=== PATIENT | female | born 1960 | race Caucasian/White ===

== ENCOUNTER → 2016-06-10 17:00 | Outpatient (CLI) | payer OTHER ==
[2012-11-16 20:04] VITALS: BMI 56.8
[~2016-06-10 17:00] MED LIST: ALEVE220 MG PO; CELEXA20 MG PO; GLUCOPHAGE500 MG PO; K-DUR20 MEQ PO; LASIX20 MG PO; MOTRIN600 MG PO; NORCO 5/325 TAB1 TA1 PO; ROBAXIN500 MG PO; ULTRAM50 MG PO; VITAMIN D250000 UNIT PO
== END | disposition home or self-care (01) ==
LOC: D.MAMMO 10:15
DX: Z12.31 Encounter for screening mammogram for malignant neoplasm of breast (principal)

== ENCOUNTER → 2016-07-11 14:38 | Outpatient (CLI) | payer OTHER ==
[2012-11-16 20:04] VITALS: BMI 56.8
== END | disposition home or self-care (01) ==
LOC: D.MAMMO 10:30
DX: R92.8 Other abnormal and inconclusive findings on diagnostic imaging of breast (principal)

== ENCOUNTER 2018-02-09 16:58 | Observation (INO) | payer OTHER ==
[~2018-02-09] VITALS: Ht 160 cm; Wt 140.9 kg
--- NOTE | ~2018-02-09 | HEMODYNAMI ---
PATIENT:STEVEN MELENDEZ MEDICAL RECORD: [id number] : 62 LOCATION:[place] D.2218 ADMISSION DATE: 02/09/18 Generatedon:02/10/20189:44 Patient name: STEVEN MELENDEZ Patient #: [id number] SSN: : 1960 Date of study: 02/10/2018 Page: Of Hemodynamic Procedure Report Patient Data Patient Demographics Procedure consent was obtained First Name: STEVEN Gender: Female Last Name: NORA : 1960 Middle Initial: OTONIEL Age: 57 year(s) Patient #: [id number] Race: Unknown Additional ID: [id number] Contact details [address]: [address] [place] [address] State: [place] City: [place] Zip code: [address] Past Medical History Allergies Allergen Reaction Date Comments Reported Iodine 02/10/2018 Admission Admission Data Admission Date: 02/09/2018 Admission Time: 19:16 Room #: D.2218 Procedure Procedure Types Cath Procedure Diagnostic Procedure [facility] w/Coronaries Procedure Description Procedure Date Procedure Date: 02/10/2018 Procedure Start Time: 9:36 Procedure End Time: 9:43 Procedure Staff Name Function Tirso Patel MD Performing Physician Laila Guillen RT Monitor Joy Moreira RT Scrub Renzo Crow RN Nurse Joseph Guy RN Ice Cream Freezer Assistant Procedure Data Cath Procedure Fluoroscopy Diagnostic fluoroscopy Total fluoroscopy Time: 1.1 time: 1.1 min min Diagnostic fluoroscopy Total fluoroscopy dose: 548 dose: 548 mGy mGy Contrast Material Contrast Material Type Amount (ml) Isovue 300 45 Entry Location Entry Primary Successful Side Size Upsize Upsize Entry Closure Gordillo ccessful Closure Location (Fr) 1 (Fr) 2 (Fr) Remarks Device Remarks Radial Right 6 Fr Mechanical artery Short Compression Estimated blood loss: 5 ml Diagnostic catheters Device Type Used For End Catheter Placement DIAGNOSTIC Sherborn 110cm 5 LV Angiography Fr catheter ([id number]) DIAGNOSTIC Sherborn 110cm 5 Left Coronary Fr catheter ([id number]) Angiography DIAGNOSTIC Sherborn 110cm 5 Right Coronary Fr catheter ([id number]) Angiography Procedure Complications No complications Procedure Medications Medication Administration Route Dosage Oxygen etCO2 Nasal cannula 2 l/min Lidocaine 2% added to field 20 Heparin Flush Bag added to field 2 bags (1000units/500ml NS) 0.9% NaCl I.V. 100 ml/hr Radial Cocktail I.A. 1 syringe (Verapomil 2mg/Nitro 400mcg/Heparin 1500units) Zofran I.V. 4 mg Versed I.V. 2 mg Fentanyl I.V. 100 mcg Versed I.V. 2 mg Fentanyl I.V. 100 mcg Hemodynamics Rest Heart Rate: 71 (bpm) Snapshots Pre Cath Intra NCS Post Cath Vital Signs Time Heart Resp SPO2 etCO2 NIBP (mmHg) Rhythm Pain Sedation Rate (ipm) (%) (mmHg) Status Level (bpm) 9:19:37 71 10 92 42.9 173/100(143) NSR 0 (11) 10(A) , No pain 9:24:22 68 13 92 45.9 162/89(135) NSR 0 (11) 10(A) , No pain 9:29:01 77 22 93 45.2 168/101(124) NSR 0 (11) 10(A) , No pain 9:33:43 59 21 91 42.1 151/90(109) NSR 0 (11) 9(A) , No pain 9:38:59 91 13 95 39.1 155/88(115) NSR 0 (11) 10(A) , No pain 9:43:37 73 18 96 41.4 164/83(123) NSR 0 (11) 10(A) , No pain Medications Time Medication Route Dose Verified Delivered Reason Notes Effectiveness by by 9:18:56 Oxygen etCO2 2 l/min Tirso Chahal used for Nasal Jorge Patel MD procedure cannula 9:19:21 Lidocaine 2% added 20ml Tirso Buffie for local to vial Jorge Guy RN anesthetic field 9:19:27 Heparin Flush added 2 bags Tirso Ruiz used for Bag to Jorge Guy RN procedure (1000units/500ml field NS) 9:19:36 0.9% NaCl I.V. 100 Tirsokaren Rebolledoie Per ml/hr Jorge Guy RN physician 9:19:55 Zofran I.V. 4 mg Tirso Ruiz Per Jorge Guy RN physician 9:32:41 Versed I.V. 2 mg Tirso Ruiz for sedation Jorge Guy RN 9:32:46 Fentanyl I.V. 100 mcg Tirso Ruiz for sedation Jorge Guy RN 9:36:07 Versed I.V. 2 mg Tirso Ruiz for sedation Jorge Guy RN 9:36:11 Fentanyl I.V. 100 mcg Tirso Ruiz for sedation Jorge Guy RN 9:37:41 Radial Cocktail I.A. 1 Tirso Chahal for (Verapomil syringe Jorge Patel MD vasodilation 2mg/Nitro 400mcg/Heparin 1500units) Procedure Log Time Note 8:37:33 Time tracking: Regular hours (M-F 7:00 - 5:00) 8:37:37 Plan of Care:Hemodynamics will remain stable., Cardiac rhythm will remain stable., Comfort level will be maintained., Respiratory function will remain adequate., Patient/ family verbilizes understanding of procedure., Procedure tolerated without complication., Recovers from procedure without complications.. 8:37:39 Joseph Guy RN sent for patient. Start room use. 9:00:20 Patient received from Med/Surg to CCL 1 Alert and oriented. Tansferred to table in Supine position. 9:00:21 Warm blankets applied, and renny hugger turned on for patient comfort. 9:00:21 Correct patient and procedure confirmed by team. 9:00:23 Signed procedure consent form obtained from patient. 9:00:24 ECG and BP/O2 sat monitors applied to patient. 9:00:25 Full Disclosure recording started 9:03:42 H&P Date Dictated: 02/09/2018 Within 30 days and on chart.. 9:03:44 Pre-procedure instructions explained to patient. 9:03:44 Pre-op teaching completed and patient verbalized understanding. 9:03:53 Family in waiting room. 9:03:55 Patient NPO since Midnight. 9:04:03 Patient allergic to Iodine 9:04:05 Is the patient allergic to Iodine/contrast media? Yes. 9:04:06 Was the patient premedicated? Yes 9:04:07 Is patient on blood thinner?Yes 9:04:09 ACC The patient was administered the following blood thiners within the last 24 hours: ACCPlavix 9:06:52 Patient diabetic? Yes. 9:07:03 If diabetic: On Metformin? Yes 9:07:05 If on Metformin: Last Dose? 02/09/2018 9:07:14 Previous problem with sedation/anesthesia? Yes Nausea 9:07:15 Snore? No 9:07:17 Sleep apnea? No 9:07:18 Deviated septum? No 9:07:19 Opens mouth fully? Yes 9:07:20 Sticks out tongue? Yes 9:07:22 Airway obstruction? No ? 9:07:24 Dentures? No ? 9:07:28 Pre procedure: right dorsailis pedis pulse 2+ Normal; easily identifiable; not easily obliterated 9:07:31 Modified Parker's test Ulnar < 7 seconds 9:07:33 Patient pain scale 0/10 ?. 9:07:45 IV patent on arrival in left hand with 0.9% NaCl at [facility]. 9:07:47 Lab results completed and on chart. 9:07:50 Right Radial & Right Groin area was prepped with chlora-prep and draped in sterile fashion 9:07:51 Alarms reviewed by R. N. 9:07:52 Sharps counted by scrub and verified by R.N. 9:18:34 Baseline sample Acquired. 9:18:46 Vital chart was started 9:18:48 Rhythm: sinus rhythm 9:18:51 Zero performed for pressure channel P1 9:18:55 Zero performed for pressure channel P1 9:18:56 Oxygen 2 l/min etCO2 Nasal cannula was administered by Tirso Patel MD; used for procedure; 9:19:21 Lidocaine 2% 20ml vial added to field was administered by Joseph Guy RN; for local anesthetic; 9:19:27 Heparin Flush Bag (1000units/500ml NS) 2 bags added to field was administered by Joseph Guy RN; used for procedure; 9:19:36 0.9% NaCl 100 ml/hr I.V. was administered by Joseph Guy RN; Per physician; 9:19:55 Zofran 4 mg I.V. was administered by Joseph Guy RN; Per physician; 9:28:20 Final Timeout: patient, procedure, and site verified with staff and physician. All members of the team are in agreement. 9:28:24 Right Radial site verified by team. 9:28:26 Physical assessment completed. ASA score P 2 - A patient with mild systemic disease as per Tirso Patel MD. 9:28:29 Sedation plan: IV Moderate Sedation Medication:Versed, Fentanyl 9:28:44 Use device set Radial Dx or PCI 9:28:45 ACIST Syringe (79083) opened to sterile field. 9:28:45 Medline Cath Pack ([id number]) opened to sterile field. 9:28:46 Bag Decanter (2002S) opened to sterile field. 9:28:47 DIAGNOSTIC WIRE .035 260cm J wire (083527) opened to sterile field. 9:28:48 ACIST Hand Control (11244) opened to sterile field. 9:28:49 ACIST Manifold (77535) opened to sterile field. 9:28:50 Tegaderm 4 x 4 (1626W) opened to sterile field. 9:28:50 MBrace Wrist Support ([id number]) opened to sterile field. 9:28:52 SHEATH 6Fr Prelude Radial ([id number]) opened to sterile field. 9:32:41 Versed 2 mg I.V. was administered by Joseph Guy RN; for sedation; 9:32:46 Fentanyl 100 mcg I.V. was administered by Joseph Guy RN; for sedation; 9:35:55 Procedure started. 9:36:00 Local anesthetic to right radial artery with Lidocaine 2% by Tirso Patel MD.INITIAL ACCESS ONLY 9:36:07 Versed 2 mg I.V. was administered by Joseph Guy RN; for sedation; 9:36:10 A 6 Fr Short sheath was inserted into the Right Radial artery 9:36:11 Fentanyl 100 mcg I.V. was administered by Joseph Guy RN; for sedation; 9:36:57 A DIAGNOSTIC Sherborn 110cm 5 Fr catheter (727097) was advanced over the wire and used for LV Angiography. 9:37:17 LV gram done using JACKSON 9:37:20 Injector settings: Ml/sec: 5, Volume: 15, 9:37:41 Radial Cocktail (Verapomil 2mg/Nitro 400mcg/Heparin 1500units) 1 syringe I.A. was administered by Tirso Patel MD; for vasodilation; 9:38:25 EF : 55 % 9:38:36 A DIAGNOSTIC Sherborn 110cm 5 Fr catheter (127534) was advanced over the wire and used for Left Coronary Angiography. 9:39:42 A DIAGNOSTIC Sherborn 110cm 5 Fr catheter (737122) was advanced over the wire and used for Right Coronary Angiography. 9:41:08 Catheter removed. 9:41:15 Sheath removed intact; hemostasis achieved with Mechanical Compression to the Right Radial artery. 9:41:17 Procedure ended.(Physican Out) 9:41:28 Fluoroscopy time 01.10 minutes. 9:41:32 Fluoroscopy dose: 548 mGy 9:41:32 Flurop Dose total: 548 9:41:42 Contrast amount:Isovue 300 45ml. 9:41:43 Sharps counted by scrub and verified by R.N. 9:41:45 TR band inflated with 12cc of air. 9:41:46 Insertion/operative site no bleeding no hematoma. 9:41:54 Post right radial artery:stable, clean and dry 9:42:05 Post-procedure physical assessment completed. ASA score P 2 - A patient with mild systemic disease as per Tirso Patel MD. 9:42:07 Post procedure rhythm: unchanged. 9:42:11 Estimated blood loss: 5 ml 9:42:12 Post procedure instruction explained to patient.Patient verbalizes understanding. 9:42:13 Patient needs reinforcement of post procedure teaching. 9:42:21 Procedure Complication : No complications 9:42:24 See physician's report for complete and final results. 9:42:38 TR BAND Standard ([id number]) opened to sterile field. 9:42:58 Procedure and supply charges have been captured, reviewed, submitted and are correct. 9:43:27 Report given to Pre/Post Procedure Room. 9:43:36 Patient transfered to Pre/Post Procedure Room with Stretcher. 9:43:38 Procedure ended. 9:43:38 Full Disclosure recording stopped 9:43:45 End room use (Document Last) 9:44:45 Vital chart was stopped Device Usage Item Name Manufacture Quantity Catalog Number Hospital Part Current M inimal Lot# / Charge Number Stock Stock Serial# Code ACIST Syringe Acist 1 45330 [id number] 720537 729151 2 0 (39153) Medical [employer] Inc Medline Cath Cardinal 1 [id number] 638798 62928 955813 5 Pack Health ([id number]) Bag Decanter Microtek 1 2001S 050602 88564 821989 5 (2001S) Medical Inc. DIAGNOSTIC WIRE St Osorio 1 612667 601563 814204 537965 3 0 .035 260cm J wire (605951) ACIST Hand Acist 1 07174 553938 893301 625456 5 Control (62226) [employer] Inc ACIST Manifold Acist 1 28737 870050 985420 066485 5 (19790) Medical Systems Inc Tegaderm 4 x 4 3M 1 1626W 202856 019465 007593 5 (1626W) MBrace Wrist Advanced 1 140-0250-00 287616 66032 663305 5 Support Vascular ([id number]) Dynamics SHEATH 6Fr Merit 1 [id number] 888426 186651 993870 5 Prelude Radial Medical ([id number]) DIAGNOSTIC Terumo 1 24-9826 770743 630342 647556 5 Sherborn 110cm 5 Fr catheter (647356) TR BAND Terumo 1 [id number] 792434 545070 193766 4 0 Standard ([id number]) Signature Audit Rice Stage Time Signature Unsigned Intra-Procedure 02/10/2018 Laila 9:44:41 AM Counts RT(R) Signatures Monitor : Laila Signature : Counts RT Date : Time : [id number] [place] [address]
--- NOTE | ~2018-02-09 | HP ---
PATIENT: STEVEN MELENDEZ MEDICAL RECORD: [id number] ACCOUNT: [id number] LOCATION:[facility] : 62 ADMISSION DATE: 02/09/18 PCP: JOVAN LONG DO HISTORY AND PHYSICAL EXAMINATION DIAGNOSES: 1. Unstable angina. 2. Diabetes. 3. Hypertension. 4. Hyperlipidemia. HISTORY OF PRESENT ILLNESS: Ms. Melendez has multiple risk factors for coronary disease, has been having 1 month of chest pain in an escalating unstable fashion. She now presents to the Emergency Room. Her EKG has ST-T abnormalities laterally suggestive of ongoing ischemia. PHYSICAL EXAMINATION: GENERAL APPEARANCE: Well-nourished, well-developed, appears stated age. Level of distress, comfortable. PSYCHIATRIC: Mental status, alert, normal affect. Orientation, oriented to time, place and person. EYES: Lids and conjunctiva, noninjected. No discharge, no pallor. ENT: Lips, teeth, gums, normal dentition. Oropharynx, no cyanosis, no pallor. NECK: Carotid arteries, bilateral normal upstroke, no bruits, no thrills. JUGULAR VEINS: No jugular venous pressure or distention. CERVICAL LYMPH NODES: Nontender, nonenlarged. THYROID: Not enlarged. Nontender. No nodules. LUNGS: Respiratory effort, unlabored. CHEST: Normal curvature. No thoracic deformity. No chest wall tenderness. Percussion, resonant. Auscultation, clear. No wheezes, no rales, no rhonchi. CARDIOVASCULAR: Precordial exam, nondisplaced. No heaves or pericardial thrills. Rate and rhythm, regular. Heart sounds, normal S1, normal S2. No S3, no gallop, no rub. Systolic murmur, not heard. Diastolic murmur, not heard. EXTREMITIES: No cyanosis, no edema. Peripheral pulses, full and equal in all extremities, except as noted. No bruits appreciated. ABDOMEN: Soft, nondistended. Normal aorta. No bruit. Nontender. No masses. Liver, nontender, no hepatomegaly. Spleen, nontender, no splenomegaly. MUSCULOSKELETAL: No joint tenderness. No joint swelling. No erythema. NEUROLOGICAL: Normal gait, normal strength, normal tone. SKIN: Warm and dry. REVIEW OF SYSTEMS: The patient reports easy bruising but reports no swollen glands. The patient reports no fever, no night sweats, no significant weight gain, no significant weight loss. No significant exercise tolerance. The patient reports no dry eyes, no irritation, no vision change. Patient reports no difficulty hearing and no ear pain. Patient reports no frequent nose bleeds or nose and sinus problems. Patient reports on arm pain on exertion. No shortness of breath while lying down. No history of heart murmur. Patient reports no cough, no wheezing or coughing up blood. Patient reports no abdominal pain, no vomiting. Normal appetite. No diarrhea and not vomiting blood. No nausea and no constipation. Patient reports no incontinence. No difficulty urinating. No hematuria. No increased frequency. Patient reports no muscle aches. No weakness, no arthralgias, no back pain. No swelling of the extremities. Patient reports no abnormal mole, no jaundice, no rashes. Reports no loss of consciousness. No weakness and no numbness. No seizures, dizziness, HISTORY AND PHYSICAL [id number] MELENDEZ,STEVEN OTONIEL or headaches. The patient reports no depression, no sleep disturbance, feeling safe in a relationship and no alcohol abuse. Patient reports on fatigue. Reports no runny nose or sinus pressure. No itching, no hives, and no frequent sneezing. OVERALL IMPRESSION: Ongoing chest pain, escalating in an unstable fashion with abnormal ECG. She has a high likelihood of hemodynamically significant coronary artery disease, especially with her multiple risk factors. We will proceed with coronary angiography. Further care depends upon findings of the angiography. TRANSINT:[id number] Voice Confirmation ID: [id number] DOCUMENT ID: [id number] JASIEL IRIZARRY MD at 1950 CC: [id number] DICTATION DATE: 02/09/18 172 CHARGEBACK SPECIALIST: 02/09/18 1733 DIS IN 02/10/18 [facility] [address] [place] [address]
--- NOTE | ~2018-02-09 | OP ---
PATIENT NAME: STEVEN MELENDEZ MEDICAL RECORD: [id number] :62 LOCATION:[facility] ADMISSION DATE:02/09/18 SURGEON: JASIEL IRIZARRY MD DATE OF OPERATION: 02/10/2018 PROCEDURES: 1. Left heart catheterization. 2. Selective coronary angiography. 3. Left ventriculogram. INDICATION: Chest pain compatible with angina. PROCEDURE IN DETAIL: After informed consent was obtained and after detailed description of risks and benefits as well as alternative therapies, the patient elected to proceed with angiogram and heart catheterization. The right radial area was prepped and draped in normal sterile fashion. Right radial artery was cannulated via modified Seldinger technique with placement of 5-Korean sheath. All catheters were exchanged through this sheath. FINDINGS: Left ventriculogram was performed in standard 30-degree JACKSON view, reveals good cardiac wall motion throughout all segments. Overall ejection fraction estimated at 60%. SELECTIVE CORONARY ANGIOGRAPHY: 1. Left main is with no significant angiographic disease. 2. Left anterior descending has moderate irregularities, but no flow-limiting stenosis. 3. Left circumflex has moderate irregularities, but no flow-limiting stenosis. 4. Right coronary has no significant angiographic evidence of coronary disease. OVERALL IMPRESSION: No significant coronary disease present. Chest pain is noncardiac in etiology. TRANSINT:[id number] Voice Confirmation ID: [id number] DOCUMENT ID: [id number] JASIEL IRIZARRY MD at 1729 CC: [id number] DICTATION DATE: 02/22/18 1553 MANAGER PARK: 02/22/18 1639 DIS IN 02/10/18 [place] [id number] [place] [id number]
--- NOTE | ~2018-02-09 | DS ---
PATIENT:STEVEN MELENDEZ :62 MEDICAL RECORD: [id number] DISCHARGE SUMMARY ADMISSION DATE: 02/09/18 DISCHARGE DATE: 02/10/18 DATE OF DISCHARGE: 02/10/2018 DIAGNOSES: 1. Chest pain. 2. Normal cardiac catheterization. Ms. Melendez presents with chest pain; however, cardiac catheterization is normal. Discharged home with no change in her medications. She will follow up with her primary care physician for noncardiac chest pain etiology. TRANSINT:[id number] Voice Confirmation ID: [id number] DOCUMENT ID: [id number] JASIEL IRIZARRY MD at 1729 CC: [id number] DICTATION DATE: 02/22/18 1553 PAYROLL SECRETARY: 02/22/18 1744 DIS IN 02/10/18 [address] [place] [address]
[2018-02-09] MEDS ORDERED: ZANAFLEX4 MG PO (17:13)
[2018-02-09] MEDS ORDERED: LISINOPRIL10 MG PO (17:13)
[2018-02-09] MEDS ORDERED: ULTRAM50 MG PO (17:14)
[2018-02-09 17:31] VITALS: BP 130/82
[2018-02-09 18:01] VITALS: BP 119/77
[2018-02-09 18:14] LABS: BASOPHILS 0.2 % (0-2); EOSINOPHILS 0.8 % (0-7); HEMATOCRIT 35.1 % (36.0-48.0); HEMOGLOBIN 11.1 g/dL (12-16); IMMATURE GRANULOCYTES 0.3 % (0-5); MCH 26.6 pg (26.0-34.0); MCHC 31.6 g/dL (31.0-37.0); MCV 84.2 fL (80.0-100.0); MEAN PLATELET VOLUME 9.7 fL (7.4-10.4); MONOCYTES 5.7 % (2-11); PLATELET COUNT 182 10x3/uL (130-400); RBC 4.17 10x6/uL (4.00-5.40); RDW 13.4 % (11.5-14.5); WBC 6.3 10x3/uL (4.8-10.8)
[2018-02-09 18:27] LABS: INR 0.89 (0.85-1.17); PROTIME 11.7 SECONDS (11.6-15.0)
[2018-02-09 18:32] VITALS: BP 148/64
[2018-02-09 18:38] LABS: ALBUMIN 3.4 g/dL (3.4-5.0); ALKALINE PHOSPHATASE 107 U/L (46-116); ALT (SGPT) 36 U/L (10-68); CALC OSMOLALITY 282 mosm/kg (275-300); CALCIUM 8.8 mg/dL (8.5-10.1); CARBON DIOXIDE 29.8 mmol/L (21.0-32.0); CHLORIDE - SERUM 101 mmol/L (98-107); GLUCOSE 194 mg/dL (74-106); POTASSIUM - SERUM 3.8 mmol/L (3.5-5.1); SODIUM 138 mmol/L (136-145); UREA NITROGEN 19 mg/dL (7-18); eGFR NON AFRICAN AMERICAN 61 mL/min (90-120)
[2018-02-09 18:53] LABS: CKMB 1.1 U/L (0.0-3.6); CREATINE KINASE 81 UL (21-215)
[2018-02-09 19:03] LABS: TROPONIN-I < 0.017 ng/mL (0.000-0.060)
[2018-02-09 19:30] VITALS: BP 142/75
[2018-02-09 20:30] VITALS: BP 156/79
[2018-02-09 21:38] VITALS: BP 139/71
[2018-02-10 04:07] VITALS: BP 124/56
[2018-02-10 08:28] VITALS: BP 137/67
[2018-02-10 09:10] VITALS: Ht 160 cm; Wt 140.9 kg
== END 2018-02-10 12:03 | disposition home or self-care (01) ==
LOC: D.ER 16:58 → D.MS 19:16 → D.CLR 19:16 → D.EDHOLD 19:16 → OBSVTIME 19:16 → D.MS 20:07 → D.CLR 02-10 09:50
PROVIDERS: Family Medicine
DX: R07.9 Chest pain, unspecified (principal); E11.9 Type 2 diabetes mellitus without complications; I10 Essential (primary) hypertension; E78.5 Hyperlipidemia, unspecified; R94.31 Abnormal electrocardiogram [ECG] [EKG]

== ENCOUNTER → 2018-04-20 21:18 | Outpatient (CLI) | payer OTHER ==
[~2018-04-20 21:18] MED LIST changes: +LISINOPRIL10 MG PO; +ZANAFLEX4 MG PO
== END | disposition home or self-care (01) ==
LOC: D.MAMMO 04-16 14:15
DX: Z12.31 Encounter for screening mammogram for malignant neoplasm of breast (principal)

== ENCOUNTER 2020-09-07 06:52 | Day surgery (SDC) | payer OTHER ==
[~2020-09-07] VITALS: Ht 157.5 cm; Wt 136.4 kg
--- NOTE | ~2020-09-07 | OP ---
PATIENT NAME: STEVEN MELENDEZ MEDICAL RECORD: [id number] :62 LOCATION:D.OPS ADMISSION DATE: SURGEON: PATT DINERO MD DATE OF OPERATION: 09/07/2020 PROCEDURE: Colonoscopy. PREOPERATIVE DIAGNOSIS: Screening. MEDICATIONS: Propofol per anesthesia. Colonoscopy was performed. The colonoscope was inserted through the rectum and advanced to the cecum, identified by the ileocecal valve and the appendiceal orifice. The quality of the prep was good. There were a few sigmoid diverticula visualized. The remainder of the exam was normal. The patient tolerated the procedure well. The prep was good to fair. FINAL DIAGNOSES: Good to fair prep. Multiple sigmoid diverticula. PLAN: Advance diet, fiber supplements. Repeat colonoscopy in 3-5 years given good to fair prep. TRANSINT:[id number] Voice Confirmation ID: [id number] DOCUMENT ID: [id number] PATT DINERO MD CC: [id number] DICTATION DATE: 09/07/20 1338 HOSPICE ADMINISTRATOR: 09/07/20 2334 [facility] 09/07/20 [id number] [place] [address]
[2020-09-07 07:20] LABS: ANION GAP 12.6 mmol/L (8-16); BASOPHILS 0.2 % (0-2); CALCIUM 8.8 mg/dL (8.5-10.1); CARBON DIOXIDE 28.5 mmol/L (21.0-32.0); CREATININE - SERUM 0.9 mg/dL (0.6-1.3); EOSINOPHILS 1.5 % (0-7); HEMATOCRIT 42.5 % (36.0-48.0); HEMOGLOBIN 13.5 g/dL (12-16); IMMATURE GRANULOCYTES 0.2 % (0-5); LYMPHOCYTE ABS# 0.95 10x3/uL (1.18-3.74); LYMPHOCYTES 20.3 % (15-50); MCH 28.8 pg (26.0-34.0); MCHC 31.8 g/dL (31.0-37.0); MCV 90.6 fL (80.0-100.0); MEAN PLATELET VOLUME 9.9 fL (7.4-10.4); MONOCYTES 6.4 % (2-11); NEUTROPHIL ABS# 3.34 10x3/uL (1.56-6.13); NEUTROPHILS 71.4 % (40-80); PLATELET COUNT 201 10x3/uL (130-400); POTASSIUM - SERUM 4.1 mmol/L (3.5-5.1); RBC 4.69 10x6/uL (4.00-5.40); RDW 12.8 % (11.5-14.5); WBC 4.7 10x3/uL (4.8-10.8)
[2020-09-07] MEDS ORDERED: LIPITOR20 MG PO (10:39)
[2020-09-07 10:52] VITALS: BP 137/70; Ht 157.5 cm; Wt 136.4 kg
== END 2020-09-07 14:40 | disposition home or self-care (01) ==
LOC: D.OPS 06:52
PROVIDERS: Anesthesiology; ATTEND Internal Medicine Gastroenterology
DX: Z12.11 Encounter for screening for malignant neoplasm of colon (principal); K57.30 Diverticulosis of large intestine without perforation or abscess without bleeding